=== PATIENT | female | born 1980 | race Caucasian/White ===

== ENCOUNTER 2024-07-29 17:59 | Emergency (ER) | payer BC, OTHER ==
[2024-07-29 18:34] VITALS: BP 141/98; PULSE 95; RESP 18; TEMP 98.7; BMI 23.3
== END 2024-07-29 20:15 | disposition home or self-care (01) ==
LOC: JERFT 17:59 → JER 17:59 → JERFT 20:15
DX: R05.9 Cough, unspecified (principal); R50.9 Fever, unspecified; J02.9 Acute pharyngitis, unspecified; R09.81 Nasal congestion; R09.3 Abnormal sputum; Z20.822 Contact with and (suspected) exposure to COVID-19
CPT/HCPCS: 0241U-QW; 71046-TC-FY; 99284-25